=== PATIENT | female | born 1950 | race Caucasian/White ===

== ENCOUNTER 2018-08-21 09:20 | Emergency (ER) | payer MEDICARE ==
[~2018-08-21] VITALS: Ht 157.5 cm; Wt 70.0 kg
[~2018-08-21 09:20] MED LIST: ASPI81TA45 PO; ATOR20TA37 PO
--- NOTE | 2018-08-21 09:44 | NUR ---
C/O constipation despite multiple OTC laxatives. C/O bilat lower ABD pain and N/V. Patient states last complete BM on 09/13. Family at bedside. Will continue to monitor.
[2018-08-21 09:57] LABS: MICROSCOPIC AUTO
[2018-08-21 10:00] LABS: CULTURE INDICATED? YES
[2018-08-21] MEDS ORDERED: ONDANSETRON 2MG/ML, 2ML ONE (10:13)
[2018-08-21] MEDS ORDERED: DICYCLOMINE 10 MG/ML, 2ML ONE (10:13)
[2018-08-21] MEDS ORDERED: LORazepam 2 MG/ML, 1ML ONE (10:14)
[2018-08-21 10:24] LABS: BASOPHILS # (AUTO) 0.03 x10^3/uL (0-0.1); BASOPHILS % (AUTO) 0 % (0-1); EOSINOPHILS # (AUTO) 0.04 x10^3/uL (0-0.4); EOSINOPHILS % (AUTO) 1 % (1-7); LYMPHOCYTES # (AUTO) 1.92 x10^3/uL (1-3.4); LYMPHOCYTES % (AUTO) 30 % (22-44); MD NO; MEAN CORPUSCULAR HGB CONC 33.4 g/dL (32.4-35.8); MEAN CORPUSCULAR VOLUME 92.7 fL (80-100); MEAN PLATELET VOLUME 7.9 fL (7.4-10.4); MONOCYTES # (AUTO) 0.44 x10^3/uL (0.2-0.8); MONOCYTES % (AUTO) 7 % (2-9); NEUTROPHILS # (AUTO) 3.91 x10^3/uL (1.8-6.8); NEUTROPHILS % (AUTO) 62 % (42-75); PLATELET COUNT 284 x10^3/uL (130-400); RED BLOOD COUNT 4.83 x10^6/uL (3.82-5.3); RED CELL DISTRIBUTION WIDTH 13.7 % (9.6-15.2)
[2018-08-21 10:30] LABS: INTERNATIONAL NORMALIZED RATIO 0.94 (0.93-1.1); PROTHROMBIN TIME 9.9 Seconds (9.6-11.5)
[2018-08-21] MEDS ORDERED: ONDANSETRON 2MG/ML, 2ML IVPush ONE (10:30)
[2018-08-21] MEDS ORDERED: LORazepam 2 MG/ML, 1ML IVPush ONE (10:30)
[2018-08-21] MEDS ORDERED: DICYCLOMINE 10 MG/ML, 2ML IM ONE (10:30)
[2018-08-21 10:31] LABS: ALANINE AMINOTRANSFERASE 29 U/L (12-78); ALBUMIN 3.7 g/dL (3.4-5.0); ANION GAP 10 mmol/L (5-15); CALCIUM 8.5 mg/dL (8.5-10.1); CHLORIDE 111 mmol/L (98-107); CREATININE 0.73 mg/dL (0.55-1.02)
[2018-08-21 10:34] LABS: ALKALINE PHOSPHATASE 79 U/L (45-117); BILIRUBIN,TOTAL 0.4 mg/dL (0.2-1.0); TOTAL PROTEIN 7.2 g/dL (6.4-8.2)
--- NOTE | 2018-08-21 10:35 | NUR ---
pt in room at this time. awaiting results of labs. pt comfortable at this time. call light in reach. pt expresses no needs or wants at this time. daughter to walk pts to their car and states they will return shortly.
[2018-08-21] MEDS ORDERED: OMNIPAQUE 350 MG/ML, 100ML BOTTLE ONE (11:01)
[2018-08-21 11:04] VITALS: BP 138/81
== END 2018-08-21 12:19 | disposition home or self-care (01) ==
LOC: ED 10:18
DX: A09 Infectious gastroenteritis and colitis, unspecified (principal); Z86.73 Personal history of transient ischemic attack (TIA), and cerebral infarction without residual deficits; Z90.49 Acquired absence of other specified parts of digestive tract
CPT/HCPCS: 36415; 74177; 80053; 81001; 83690; 85025; 85610; 85730; 87086; 96372; 96374; 96375; 99284; J0500; J2060; J2405; Q9967

== ENCOUNTER 2019-03-27 11:19 | Emergency (ER) | payer MEDICARE ==
[~2019-03-27] VITALS: Ht 160 cm; Wt 79.3 kg
--- NOTE | 2019-03-27 12:08 | NUR ---
DIGITAL COURT REPORTER: PT AMBULATORY WITH STEADY GAIT TO ROOM AT THIS TIME. MILA
--- NOTE | 2019-03-27 12:16 | NUR ---
BREAK NOTE FOR RN: PT SITTING UP IN BED, RESPIRATIONS EVEN AND UNLABORED ON RA. ERPA AT BEDSIDE TO ASSESS PT. NAD NOTED AT THIS TIME. PT REPORTS HTN WHEN VISITING DR/ER.
[2019-03-27] MEDS ORDERED: KETOROLAC 30 MG/1 ML IM ONE (12:30)
[2019-03-27] MEDS ORDERED: KETOROLAC 30 MG/1 ML ONE (12:37)
--- NOTE | 2019-03-27 12:42 | NUR ---
ULTRASOUND DELAY-XRAY, EKG ETC.
[2019-03-27 12:51] LABS: BASOPHILS # (AUTO) 0.03 x10^3/uL (0-0.1); BASOPHILS % (AUTO) 0 % (0-1); EOSINOPHILS # (AUTO) 0.07 x10^3/uL (0-0.4); EOSINOPHILS % (AUTO) 1 % (1-7); LYMPHOCYTES % (AUTO) 25 % (22-44); MD NO; MEAN CORPUSCULAR HEMOGLOBIN 31.2 pg (27.0-34.8); MEAN CORPUSCULAR HGB CONC 33.3 g/dL (32.4-35.8); MEAN CORPUSCULAR VOLUME 93.8 fL (80-100); MEAN PLATELET VOLUME 8.2 fL (7.4-10.4); MONOCYTES # (AUTO) 0.52 x10^3/uL (0.2-0.8); MONOCYTES % (AUTO) 7 % (2-9); NEUTROPHILS # (AUTO) 4.95 x10^3/uL (1.8-6.8); NEUTROPHILS % (AUTO) 66 % (42-75); PLATELET COUNT 236 x10^3/uL (130-400); RED BLOOD COUNT 4.88 x10^6/uL (3.82-5.3); RED CELL DISTRIBUTION WIDTH 12.9 % (9.6-15.2)
--- NOTE | 2019-03-27 12:52 | NUR ---
BREAK NOTE: XRAY COMPLETE, EKG COMPLETE AND PT MEDICATED.
[2019-03-27 12:59] LABS: ANION GAP 7 mmol/L (5-15); CHLORIDE 110 mmol/L (98-107); CREATININE 0.77 mg/dL (0.55-1.02)
[2019-03-27 13:03] LABS: TROPONIN I < 0.015 ng/mL (0.000-0.045)
--- NOTE | 2019-03-27 14:09 | NUR ---
pt resting in [facility]. pt's aox4. resps even and unlabored.
--- NOTE | 2019-03-27 14:49 | NUR ---
20G RT AC IV STARTED BY CT
[2019-03-27] MEDS ORDERED: OMNIPAQUE 350 MG/ML, 100ML BOTTLE ONE (14:50)
[2019-03-27 15:17] VITALS: BP 156/93
--- NOTE | 2019-03-27 15:18 | NUR ---
pt resting in gurney. pt's aox4. resps even and unlabored. at bedside.
--- NOTE | 2019-03-27 16:25 | NUR ---
Patient given discharge instructions and they have confirmed that they understand the instructions. Patient ambulatory with steady gait.
== END 2019-03-27 16:26 | disposition home or self-care (01) ==
LOC: ED 15:09
DX: L04.8 Acute lymphadenitis of other sites (principal); R91.8 Other nonspecific abnormal finding of lung field; I10 Essential (primary) hypertension; Z87.891 Personal history of nicotine dependence; Z72.89 Other problems related to lifestyle; Z90.89 Acquired absence of other organs; Z90.49 Acquired absence of other specified parts of digestive tract; Z86.73 Personal history of transient ischemic attack (TIA), and cerebral infarction without residual deficits
CPT/HCPCS: 36415; 70491; 71046; 76536; 80048; 84484; 85025; 93005; 96372; 99284; J1885; Q9967

== ENCOUNTER 2019-03-29 09:10 | Emergency (ER) | payer MEDICARE ==
[~2019-03-29] VITALS: Ht 160 cm; Wt 72.9 kg
[2019-03-29 09:15] VITALS: BP 192/92
[2019-03-29] MEDS ORDERED: LOSARTAN 25MG TABLET PO ONE (09:30)
== END 2019-03-29 09:54 | disposition home or self-care (01) ==
LOC: ED 09:42
DX: I10 Essential (primary) hypertension (principal); F43.9 Reaction to severe stress, unspecified; Z86.73 Personal history of transient ischemic attack (TIA), and cerebral infarction without residual deficits; Z90.49 Acquired absence of other specified parts of digestive tract; Z87.891 Personal history of nicotine dependence
CPT/HCPCS: 99283